=== PATIENT | male | born 1970 | race Caucasian/White ===

== ENCOUNTER 2025-07-20 10:11 | Emergency (ER) | payer BC ==
[2025-07-20] MEDS: Lidocaine/Epineph/Tetracaine 3 ML Syringe TOP ONE (10:36)
== END 2025-07-20 12:30 | disposition home or self-care (01) ==
LOC: JP.ED 10:11
DX: S61.211A Laceration without foreign body of left index finger without damage to nail, initial encounter (principal); I10 Essential (primary) hypertension; F17.200 Nicotine dependence, unspecified, uncomplicated; Z79.899 Other long term (current) drug therapy; W29.3XXA Contact with powered garden and outdoor hand tools and machinery, initial encounter
CPT/HCPCS: 12002; 99282; A9270; 12001; 99283